=== PATIENT | female | born 1995 | race Two or more races ===

== ENCOUNTER 2022-08-02 10:44 | Outpatient (CLI) | payer BC | END 2022-08-02 10:45 | disposition home or self-care (01) | LOC: CTENTCT 10:44 | PROVIDERS: ATTEND Specialist | DX: J34.2 Deviated nasal septum (principal) | CPT/HCPCS: 70486 ==

== ENCOUNTER 2022-08-15 16:15 | Outpatient (CLI) | payer BC ==
[2022-08-15 18:17] LABS: BHCG - Serum Negative (NEGATIVE); Pregs Control Background? CLEAR/WHITE (CLR/WHITE); Pregs Control Bar Appear? YES (CONTROL BAR)
== END 2022-08-15 16:16 | disposition home or self-care (01) ==
LOC: LABBT 16:15
PROVIDERS: ATTEND Specialist
DX: Z01.812 Encounter for preprocedural laboratory examination (principal); Z20.822 Contact with and (suspected) exposure to COVID-19
CPT/HCPCS: 84703; 85014; 87811

== ENCOUNTER 2022-08-18 11:18 | Day surgery (SDC) | payer BC ==
[2022-08-17 10:26] VITALS: BMI 34.5
[2022-08-18] MEDS ORDERED: Oxymetazoline HCl 0.05% (30 ML BOT) ONE ×2 (11:44→12:32)
[2022-08-18] MEDS ORDERED: Lidocaine 1% (PF) 30 ML VIAL ONE (12:32)
[2022-08-18] MEDS ORDERED: EPINEPHrine 1 MG/ML AMP ONE (12:32)
[2022-08-18] MEDS ORDERED: fentaNYL Citrate/PF 100 MCG/2 ML SYRINGE ONE (14:04)
[2022-08-18] MEDS ORDERED: Ondansetron PF 4 MG/2 ML Vial ONE (14:12)
[2022-08-18] MEDS ORDERED: Rocuronium Bromide 10 MG/ML (10ML VIAL) ONE (14:12)
[2022-08-18] MEDS ORDERED: Dexamethasone 20 MG/5 ML VIAL ONE (14:12)
[2022-08-18] MEDS ORDERED: Phenylephrine 10 MG/ML VIAL ONE (14:12)
[2022-08-18] MEDS ORDERED: Glycopyrrolate 0.2 MG/ML 5 ML SYRINGE ONE (14:12)
[2022-08-18] MEDS ORDERED: PROPOFOL 200 MG/20 ML VIAL ONE (14:12)
[2022-08-18] MEDS ORDERED: ePHEDrine 50 MG/ML VIAL ONE (14:12)
[2022-08-18] MEDS ORDERED: NEOSTIGMINE 3 MG/3 ML SYR 3 MG/3 ML SYRINGE ONE (14:12)
[2022-08-18] MEDS ORDERED: methylPREDNISolone Sod Succ 40 MG VIAL ONE (14:22)
[2022-08-18] MEDS ORDERED: methylPREDNISolone Acetate 40 mg/ml Vial ONE (14:22)
[2022-08-18] MEDS ORDERED: Fentanyl 100 MCG/2 ML VIAL ONE ×2 (15:32→16:00)
[2022-08-18] MEDS ORDERED: Hydrocodone-Acetamin 15 ML UDCUP ONE (18:14)
== END 2022-08-18 18:55 | disposition home or self-care (01) ==
LOC: SDC 11:18
PROVIDERS: ATTEND Specialist
PROC: 099Q8ZZ Drainage of Right Maxillary Sinus, Via Natural or Artificial Opening Endoscopic (ICD-10-PCS; principal; 2022-08-18)
PROC: 09BU8ZZ Excision of Right Ethmoid Sinus, Via Natural or Artificial Opening Endoscopic (ICD-10-PCS; principal; 2022-08-18)
PROC: 09BV8ZZ Excision of Left Ethmoid Sinus, Via Natural or Artificial Opening Endoscopic (ICD-10-PCS; principal; 2022-08-18)
PROC: 09BT8ZZ Excision of Left Frontal Sinus, Via Natural or Artificial Opening Endoscopic (ICD-10-PCS; principal; 2022-08-18)
PROC: 099W8ZZ Drainage of Right Sphenoid Sinus, Via Natural or Artificial Opening Endoscopic (ICD-10-PCS; principal; 2022-08-18)
PROC: 09BS8ZZ Excision of Right Frontal Sinus, Via Natural or Artificial Opening Endoscopic (ICD-10-PCS; principal; 2022-08-18)
PROC: 09BL8ZZ Excision of Nasal Turbinate, Via Natural or Artificial Opening Endoscopic (ICD-10-PCS; principal; 2022-08-18)
PROC: 8E09XBZ Computer Assisted Procedure of Head and Neck Region (ICD-10-PCS; principal; 2022-08-18)
PROC: 09SM0ZZ Reposition Nasal Septum, Open Approach (ICD-10-PCS; principal; 2022-08-18)
PROC: 099R8ZZ Drainage of Left Maxillary Sinus, Via Natural or Artificial Opening Endoscopic (ICD-10-PCS; principal; 2022-08-18)
PROC: 099X8ZZ Drainage of Left Sphenoid Sinus, Via Natural or Artificial Opening Endoscopic (ICD-10-PCS; principal; 2022-08-18)
DX: J32.9 Chronic sinusitis, unspecified (principal); J34.2 Deviated nasal septum; J34.3 Hypertrophy of nasal turbinates; Z79.899 Other long term (current) drug therapy
CPT/HCPCS: J0171; J1100; J2001; J2370; J2405; J2704; J2920; J3010; J3490